=== PATIENT | female | born 1980 | race Caucasian/White ===

== ENCOUNTER 2016-11-27 13:17 | Emergency (ER) | payer OTHER ==
--- NOTE | 2016-11-27 14:49 | ED ---
General Adult HPI - General Chief complaint: Extremity Problem,Nontraumatic Stated complaint: Hand Pain Time Seen by Provider: 11/27/16 14:18 Source: patient, RN notes reviewed Mode of arrival: ambulatory Limitations: no limitations - History of Present Illness Initial comments: Chief complaint and history of present illness a 36-year-old female with complaint of discomfort to her right wrist that started for 5 days ago persists. She also has mild discomfort to her right flank increases with certain twisting and turning. She also complains discomfort to her right knee without swelling or injury. Patient also relates that approximately one or 2 years ago she had bilateral ankle swelling for parent reason subsided on its own. Patient denies previous or arthritic type problems other than that noted above. Denies any injuries. Her children a 5 or 6 years old she doesn't carry them on the particular side. 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 Denies fevers and chills. - Related Data Previous Rx's Medication Instructions Recorded Azithromycin [Zithromax Z-pack] 250 mg PO DIRECTED #6 tab 11/27/16 Allergies Allergy/AdvReac Type Severity Reaction Status Date / Time hydromorphone AdvReac Itching Verified 11/27/16 14:15 Review of Systems ROS Statement: Those systems with pertinent positive or pertinent negative responses have been documented in the HPI. Review of systems no visual acuity changes no headache no stiff neck no sore throat. No chest pain. She has discomfort to the right flank area no injury. Mild discomfort with twisting and turning. No abdominal pain no nausea no vomiting no diarrhea. Discomfort through the carpal tunnel on the right hand. Mild discomfort to the right wrist. No evidence of a neuro deficits. Also some discomfort to her left knee. All systems reviewed. Past medical problems no medical problems. Surgeries post ectopy. Family history not respiratory. She has ALLERGIES to hydromorphone which causes her itching. Nonsmoker nondrinker. ROS Other: All systems not noted in ROS Statement are negative. Past Medical History Past Medical History: No Reported History History of Any Multi-Drug Resistant Organisms: None Reported Past Surgical History: Cholecystectomy Past Psychological History: No Psychological Hx Reported Smoking Status: Never smoker Past Alcohol Use History: None Reported Past Drug Use History: None Reported General Exam - General Exam Comments Initial Comments: General: The patient is awake and alert, with chief complaint of discomfort to her several joints including right hand right knee mild discomfort to her right mid back area. No injuries. Vital signs show temperature 97.8 pulse 74 respiratory rate 20 pulse ox 99% room air blood pressure 123/86 while he elevated systolic passed out noted. The patient is mild discomfort. She will be given follow-up with family physician on discharge. Eye: Pupils are equal, round and reactive to light, extra-ocular movements are intact ; there is normal conjunctiva bilaterally. No signs of icterus. Ears, nose, mouth and throat: There are moist mucous membranes and no oral lesions. Neck: The neck is supple, there is no tenderness , no anterior cervical lymphadenopathy. Cardiovascular: There is a regular rate and rhythm. No murmur, rub or gallop is appreciated. Respiratory: Lungs are clear to auscultation, respirations are non-labored, breath sounds are equal. No wheezes, stridor, rales, or rhonchi. Gastrointestinal: Soft, non-distended, non-tender abdomen without masses or organomegaly noted. There is no rebound or guarding present. Mild nonspecific right CVA discomfort with twisting and turning and bending. No bruising noted no complaint of urgency or dysuria but she does have frequency. Urinalysis pending.. Bowel sounds are unremarkable. Back: There is no tenderness to palpation in the midline. There is no obvious deformity. Musculoskeletal: Examination of all joints appear normal without swelling. She does have discomfort to the carpal bones of her right hand. Range of motion is normal but with discomfort. Neurovascular status intact. Normal Madhu test. Full range of motion upper and lower extremities normal joints. Examination of the right knee shows no swelling. No pain with varus valgus or drawer testing. No swelling or effusion noted on exam. Neurological: CN II-XII intact, There are no obvious motor or sensory deficits. Coordination appears grossly intact. Speech is normal. Skin: Skin is warm and dry and no rashes or lesions are noted. Limitations: no limitations Course Vital Signs 11/27/16 11/27/16 13:21 17:04 Temperature 97.8 F 98.7 F Pulse Rate 74 65 Respiratory 20 16 Rate Blood Pressure 123/86 128/68 O2 Sat by Pulse 99 99 Oximetry Medical Decision Making - Medical Decision Making Medical decision making x-ray of the right hand including the wrist was done and reviewed by radiologist his final impression is no abnormality evident to account for the patient's symptoms. As read by Dr. Oh Chest x-ray is done and reviewed by radiologist his findings are there is bilateral nodularity, increase in interstitial is also suspected, some minimal patchy density in the left upper lobe laterally. No pneumothorax or pleural effusion. Spinal curvature is again noted. Cardiac mediastinal silhouette shows possible left hilar aortopulmonary adenopathy, pulmonary vascularity shows no significant interval change. Prominent lung volumes could be indicative of COPD. Surgical clips are present in the right upper quadrant. Impression; interval development of nodular pattern within the lungs. Consider granulomatous disease both infectious and noninfectious, metastatic disease is not excluded. Consider pulmonary consult. As read by Dr. Oh Labs show rheumatoid factor less than 9, CRP elevated at 14, urine clean no signs of infection. Medical decision making; the patient's labs show white count of 55.3 hemoglobin 13 hematocrit 39. Potassium 4.0. BUN 8 creatinine 0.43 to GFR greater than 60. Glucose 75. Case discussed with Dr. Black, on-call plastic sheets finishing supervisor. He recommends in addition to the tests done a CT with IV contrast of the chest, as well as KEITH and patient to be treated with azithromycin and follow up in office within the week. And a is still pending at this time. CT of the chest was done with IV contrast entire report was reviewed and the final impression is abnormal thoracic adenopathy with heterogeneous spleen and scattered reticular nodular infiltrates most prominent pronounced in the upper lobes. Differential include active sarcoidosis, other granulomatous diseases, as well as atypical infections including mycoplasma. Pulmonology consult advised. As of this time the patient will call follow up with the plastic sheets finishing supervisor. The patient be placed on a Z-Pablo. - Lab Data Result diagrams: 11/27/16 14:45 11/27/16 14:45 Lab Results 11/27/16 11/27/16 11/27/16 Range/Units 14:45 14:45 14:45 WBC 5.3 (3.8-10.6) k/uL RBC 4.36 (3.80-5.40) m/uL Hgb 13.2 (11.4-16.0) gm/dL Hct 39.4 (34.0-46.0) % MCV 90.4 (80.0-100.0) fL MCH 30.1 (25.0-35.0) pg MCHC 33.4 (31.0-37.0) g/dL RDW 13.6 (11.5-15.5) % Plt Count 262 (150-450) k/uL Neutrophils % 70 % Lymphocytes % 15 % Monocytes % 8 % Eosinophils % 2 % Basophils % 1 % Neutrophils # 3.7 (1.3-7.7) k/uL Lymphocytes # 0.8 L (1.0-4.8) k/uL Monocytes # 0.5 (0-1.0) k/uL Eosinophils # 0.1 (0-0.7) k/uL Basophils # 0.0 (0-0.2) k/uL Sodium (137-145) mmol/L Potassium (3.5-5.1) mmol/L Chloride (98-107) mmol/L Carbon Dioxide (22-30) mmol/L Anion Gap mmol/L BUN (7-17) mg/dL Creatinine (0.52-1.04) mg/dL Est GFR (MDRD) Af Amer (>60 ml/min/1.73 sqM) Est GFR (MDRD) Non-Af (>60 ml/min/1.73 sqM) Glucose (74-99) mg/dL Calcium (8.4-10.2) mg/dL Total Bilirubin (0.2-1.3) mg/dL AST (14-36) U/L ALT (9-52) U/L Alkaline Phosphatase (38-126) U/L C-Reactive Protein 14.0 H (<10.0) mg/L Total Protein (6.3-8.2) g/dL Albumin (3.5-5.0) g/dL Urine Color Yellow Urine Appearance Clear (Clear) Urine pH 6.5 (5.0-8.0) Ur Specific [place] 1.010 (1.001-1.035) Urine Protein Negative (Negative) Urine Glucose (UA) Negative (Negative) Urine Ketones Negative (Negative) Urine Blood Negative (Negative) Urine Nitrite Negative (Negative) Urine Bilirubin Negative (Negative) Urine Urobilinogen <2.0 (<2.0) mg/dL Ur Leukocyte Esterase Negative (Negative) Rheumatoid Factor <9 (<12) IU/mL 11/27/16 Range/Units 14:45 WBC (3.8-10.6) k/uL RBC (3.80-5.40) m/uL Hgb (11.4-16.0) gm/dL Hct (34.0-46.0) % MCV (80.0-100.0) fL MCH (25.0-35.0) pg MCHC (31.0-37.0) g/dL RDW (11.5-15.5) % Plt Count (150-450) k/uL Neutrophils % % Lymphocytes % % Monocytes % % Eosinophils % % Basophils % % Neutrophils # (1.3-7.7) k/uL Lymphocytes # (1.0-4.8) k/uL Monocytes # (0-1.0) k/uL Eosinophils # (0-0.7) k/uL Basophils # (0-0.2) k/uL Sodium 140 (137-145) mmol/L Potassium 4.0 (3.5-5.1) mmol/L Chloride 106 (98-107) mmol/L Carbon Dioxide 21 L (22-30) mmol/L Anion Gap 13 mmol/L BUN 8 (7-17) mg/dL Creatinine 0.43 L (0.52-1.04) mg/dL Est GFR (MDRD) Af Amer >60 (>60 ml/min/1.73 sqM) Est GFR (MDRD) Non-Af >60 (>60 ml/min/1.73 sqM) Glucose 75 (74-99) mg/dL Calcium 9.3 (8.4-10.2) mg/dL Total Bilirubin 1.3 (0.2-1.3) mg/dL AST 30 (14-36) U/L ALT 41 (9-52) U/L Alkaline Phosphatase 94 (38-126) U/L C-Reactive Protein (<10.0) mg/L Total Protein 8.0 (6.3-8.2) g/dL Albumin 4.3 (3.5-5.0) g/dL Urine Color Urine Appearance (Clear) Urine pH (5.0-8.0) Ur Specific [place] (1.001-1.035) Urine Protein (Negative) Urine Glucose (UA) (Negative) Urine Ketones (Negative) Urine Blood (Negative) Urine Nitrite (Negative) Urine Bilirubin (Negative) Urine Urobilinogen (<2.0) mg/dL Ur Leukocyte Esterase (Negative) Rheumatoid Factor (<12) IU/mL Disposition Clinical Impression: Granulomatous disease Disposition: HOME SELF-CARE Condition: Stable Instructions: Sarcoidosis (ED) Additional Instructions: Call follow up with Dr. Black early next week. Take Z-Pablo as directed. Tylenol or ibuprofen for discomfort. Prescriptions: Azithromycin [Zithromax Z-pack] 250 mg PO DIRECTED #6 tab Time of Disposition: 18:08
[2016-11-27 15:05] LABS: Appearance,Urine Clear (Clear); Bilirubin,Urine Negative (Negative); Glucose,Urine (UA) Negative (Negative); Ketones,Urine Negative (Negative); Leukocyte Esterase,Urine Negative (Negative); Nitrite,Urine Negative (Negative); PH, Urine 6.5 (5.0-8.0); Protein,Urine Negative (Negative); UA Billing (MACRO vs. MICRO) CHEM; Urobilinogen,Urine <2.0 mg/dL (<2.0)
[2016-11-27 15:16] LABS: Rheumatoid Factor, Qnt <9 IU/mL (<12)
--- NOTE | 2016-11-27 15:22 | XR ---
EXAMINATION TYPE: XR chest 2V DATE OF EXAM: 11/27/2016 3:12 PM COMPARISON: Prior chest x-ray 11 August 2013 HISTORY: Right chest pain TECHNIQUE: Frontal and lateral views of the chest are obtained. FINDINGS: There is bilateral nodularity, increase in interstitium is also suspected, some minimal pa tchy density in the left upper lobe laterally. No pneumothorax or pleural effusion. Spinal curvature is again noted. Cardiac mediastinal silhouette shows possible left hilar or aorticopulmonary window a denopathy, pulmonary vascularity shows no significant interval change. Prominent lung volume could be indicative of COPD. Surgical clips are present right upper quadrant. IMPRESSION: Interval development of nodular pattern within the lungs. Consider granulomatous disease both infectious and noninfectious, metastatic disease is not excluded. Consider pulmonary consult.
--- NOTE | 2016-11-27 15:23 | XR ---
Right hand HISTORY: Pain 3 views of the right hand No comparisons Bone mineralization, joint spaces and alignment are maintained. There is no fracture or dislocation. No radiopaque foreign body. IMPRESSION: No abnormality evident to account for patient's symptoms.
[2016-11-27] MEDS ORDERED: HYDROcodone/APAP 5-325MG 1 EACH TAB PO STA (15:43)
[2016-11-27 15:48] LABS: Basophils % (A) 1 %; CH 30.3; CHCM 33.7; Eosinophils # (A) 0.1 k/uL (0-0.7); Eosinophils % (A) 2 %; HCT 39.4 % (34.0-46.0); HDW 2.81; HGB 13.2 gm/dL (11.4-16.0); Luc # (Auto) 0.24; Luc % (Auto) 4; Lymphocytes # (A) 0.8 k/uL (1.0-4.8); Lymphocytes % (A) 15 %; MCH 30.1 pg (25.0-35.0); MCHC 33.4 g/dL (31.0-37.0); MCV 90.4 fL (80.0-100.0); Mean Platelet Volume 6.5; Monocytes # (A) 0.5 k/uL (0-1.0); Monocytes % (A) 8 %; Neutrophils # (A) 3.7 k/uL (1.3-7.7); Neutrophils % (A) 70 %; RBC 4.36 m/uL (3.80-5.40); RDW 13.6 % (11.5-15.5); WBC 5.3 k/uL (3.8-10.6); WBC (Perox) 5.27
[2016-11-27 15:51] LABS: ALT 41 U/L (9-52); AST 30 U/L (14-36); Alkaline Phosphatase 94 U/L (38-126); Anion Gap 13 mmol/L; Blood Urea Nitrogen 8 mg/dL (7-17); Calcium 9.3 mg/dL (8.4-10.2); Carbon Dioxide 21 mmol/L (22-30); Chloride 106 mmol/L (98-107); Glucose 75 mg/dL (74-99); Non-African American GFR(MDRD) >60 (>60 ml/min/1.73 sqM); Sodium 140 mmol/L (137-145); Total Bilirubin 1.3 mg/dL (0.2-1.3)
[2016-11-27] MEDS ORDERED: RX INFO: IV CONTRAST WAS GIVEN 1 EACH MISC MISCELLANE PRN (16:48)
--- NOTE | 2016-11-27 17:57 | CT ---
EXAMINATION TYPE: CT chest w con DATE OF EXAM: 11/27/2016 5:37 PM COMPARISON: Chest x-ray from earlier today HISTORY: Abnormal cxr. Right sided chest pain. CT DLP: 542.00 mGycm. Automated Exposure Control for Dose Reduction was Utilized. TECHNIQUE: CT scan of the thorax is performed following with IV Contrast, patient injected with 100 mL of Omnipaque 300. FINDINGS: LUNGS: Correlating with chest x-ray there are ill-defined reticulonodular infiltrates involving the l ateral aspect left upper lobe and to lesser degree in the right upper lobe. Patchy reticulonodular in filtrates extend into the lingula and right middle lobe as well as portions of the right lower lobe. There are some scattered pulmonary nodules identified, for reference there is 5 x 3 mm nodule lateral ly in the left lower lobe on axial image 42. No pleural effusion or pneumothorax is seen bilaterally. Tracheobronchial tree is patent. MEDIASTINUM: There is abnormal lymph node in the superior mediastinum on axial image 6 measuring 1.7 x 1.6 cm right paratracheal level. There are multiple enlarged bilateral hilar or mediastinal lymph n odes. No cardiomegaly or pericardial effusion is seen. OTHER: Heterogeneity of spleen is present. Multiple low dense lesions are likely present Cholecystect radha clips are noted. There is straightening of spine with multilevel mild spurring. IMPRESSION: Abnormal thoracic adenopathy with heterogeneous spleen and scattered reticulonodular infi ltrates most pronounced in the upper lobes. Differential includes active sarcoidosis, other granuloma tous diseases, as well as atypical infections including mycoplasma. Pulmonology consult advised.
[2016-11-27 18:25] VITALS: BP 142/78; PULSE 80; RESP 20; TEMP 98.2
[2016-11-28 03:21] LABS: ANA w/Reflex to Titer POSITIVE (NEGATIVE)
== END 2016-11-27 18:25 | disposition home or self-care (01) ==
LOC: EC 13:17
DX: D71 Functional disorders of polymorphonuclear neutrophils (principal); R59.0 Localized enlarged lymph nodes; M79.641 Pain in right hand; R35.0 Frequency of micturition; Z88.5 Allergy status to narcotic agent; Z90.49 Acquired absence of other specified parts of digestive tract
CPT/HCPCS: 99284; 36415; 80053; 85025; 86140; 86431; 81003; 86038; 86039; 87086; 71020; 73130; 71260; Q9967

== ENCOUNTER → 2017-06-13 | Outpatient (CLI) | payer OTHER ==
--- NOTE | 2017-06-13 21:44 | ECHOS ---
STRESS ECHOCARDIOGRAM INDICATIONS: Palpitations. MEDICATIONS:: Lyrica, Pepcid, prednisone. BASELINE HEART RATE: 90 BASELINE BLOOD PRESSURE: 109/51 MAXIMUM HEART RATE: 173 MAXIMUM BLOOD PRESSURE: 192/69 85% MPHR: 158 100% MPHR: 186 METS: 6.3 MAXIMUM STAGE REACHED: II TOTAL EXERCISE TIME: 5 minutes CLINICAL INFORMATION: Baseline EKG shows sinus rhythm, normal axis, normal intervals. Patient exercised on Chandrakant protocol for a total of 5 minutes, achieving 6 METS, 93% of predicted maximal heart rate, without chest pain or diagnostic ST-segment depression. Baseline echo shows mildly enlarged left ventricle with mild LV dysfunction with an ejection fraction of 45%. Post exercise there is normal hyperdynamic response of all segments of myocardium noted. CONCLUSIONS: 1. Poor exercise tolerance. 2. Negative stress test by EKG criteria. 3. Non-ischemic cardiomyopathy with mild left ventricular dysfunction without any stress-induced ischemia. MMODL / IJN: [id number] /
== END ==
LOC: RADNMMAIN 09:29
PROVIDERS: ATTEND Family Medicine
DX: R00.2 Palpitations (principal)
CPT/HCPCS: 93017; 93350

== ENCOUNTER → 2017-07-14 | Outpatient (CLI) | payer OTHER ==
--- NOTE | 2017-07-14 16:38 | CT ---
EXAMINATION TYPE: CT chest wo con DATE OF EXAM: 07/14/2017 COMPARISON: 11/27/2016 HISTORY: SOB, f/u for sarcoidosis CT DLP: 255.[address] of the chest was performed with lung and mediastinal window settings submitted. The la ck of contrast limits evaluation of the vascular, mediastinal and parenchymal structures including th e upper abdomen. LUNGS: Previously noted reticulonodular infiltrates have for the most part resolved nearly entirely. There is mild residual interstitial change within the left upper lobe with small 5 mm lingular nodula r density. The right lung is clear. No evidence of pleural effusion. MEDIASTINUM/CLAUDIA: Dramatic improvement in mediastinal and hilar adenopathy. Residual lymph nodes are noted all measuring less than 1 cm. Thoracic aorta is of normal caliber with limited evaluation given lack of contrast. The heart is not enlarged. No evidence for mediastinal mass. UPPER ABDOMEN: No significant abnormality is seen. OTHER: No significant other abnormality. IMPRESSION: 1. Dramatic improvement in bilateral reticulonodular infiltrates as well as mediastinal and hilar ad enopathy. Mild residual interstitial changes noted left upper lobe as well as one or 2 small nodules. No new areas of infiltrate are noted at this time.
== END | disposition home or self-care (01) ==
LOC: RADCTMAIN 16:09
PROVIDERS: ATTEND Internal Medicine Pulmonary Disease
DX: R59.1 Generalized enlarged lymph nodes (principal); R91.8 Other nonspecific abnormal finding of lung field; R05 Cough; R06.02 Shortness of breath; M25.50 Pain in unspecified joint; R53.83 Other fatigue
CPT/HCPCS: 36415; 71250; 82164; 85652

== ENCOUNTER 2018-03-19 21:11 | Emergency (ER) | payer OTHER ==
[2018-03-19 21:28] VITALS: BP 126/84; PULSE 104; RESP 18; TEMP 98.5
[2018-03-19] MEDS ORDERED: KETOROLAC 30 MG/ML 1 ML VIAL IVP STA (22:18)
[2018-03-19] MEDS ORDERED: diphenhydrAMINE 50 MG/ML 1 ML VIAL IVP STA (22:18)
[2018-03-19] MEDS ORDERED: METOCLOPRAMIDE 5 MG/ML 2 ML VIAL IVP STA (22:18)
[2018-03-19] MEDS ORDERED: SODIUM CHLORIDE 0.9% 1,000 ML IV ONE (22:18)
[2018-03-19] MEDS ORDERED: FAMOTIDINE 20 MG TAB PO STA (22:43)
[2018-03-19] MEDS ORDERED: predniSONE 20 MG TAB PO STA (22:43)
[2018-03-19] MEDS ORDERED: diphenhydrAMINE 50 MG CAP PO STA (22:43)
--- NOTE | 2018-03-19 22:44 | ED ---
Allergic Reaction HPI - General Chief complaint: Allergic Reaction Stated complaint: Rash Time Seen by Provider: 03/19/18 22:18 Source: patient Mode of arrival: ambulatory Limitations: no limitations - History of Present Illness MD Complaint: hives Onset/Timin -: days(s) Exposure: unknown Symptoms: rash, itching Severity: moderate Treatment Prior to Arrival: benadryl Previous Allergy History: none - Related Data Home Medications Medication Instructions Recorded Confirmed Hydrocortisone Cream 1 applic TOPICAL BID PRN 03/19/18 03/19/18 [Hydrocortisone 1% Cream] Lisinopril [Zestril] 2.5 mg PO DAILY 03/19/18 03/19/18 Metoprolol Succinate [Toprol Xl] 50 mg PO DAILY 03/19/18 03/19/18 diphenhydrAMINE [Benadryl] 25 mg PO HS PRN 03/19/18 03/19/18 Previous Rx's Medication Instructions Recorded Famotidine [Pepcid] 20 mg PO BID #14 tablet 03/19/18 predniSONE 60 mg PO DAILY #30 tab 03/19/18 Allergies Allergy/AdvReac Type Severity Reaction Status Date / Time hydromorphone AdvReac Itching Verified 03/19/18 22:21 Review of Systems ROS Statement: Those systems with pertinent positive or pertinent negative responses have been documented in the HPI. ROS Other: All systems not noted in ROS Statement are negative. Constitutional: Denies: fever, chills ENT: Denies: throat pain, congestion Respiratory: Denies: cough, dyspnea Cardiovascular: Denies: palpitations Gastrointestinal: Denies: vomiting, diarrhea Genitourinary: Denies: dysuria Skin: Reports: as per HPI, rash Past Medical History Past Medical History: No Reported History History of Any Multi-Drug Resistant Organisms: None Reported Past Surgical History: Cholecystectomy Past Psychological History: No Psychological Hx Reported Smoking Status: Never smoker Past Alcohol Use History: None Reported Past Drug Use History: None Reported General Exam Limitations: no limitations General appearance: alert, in no apparent distress Head exam: Present: atraumatic, normocephalic Eye exam: Present: normal appearance. Absent: scleral icterus, conjunctival injection ENT exam: Present: normal oropharynx, mucous membranes moist Neck exam: Present: normal inspection, full ROM Respiratory exam: Present: normal lung sounds bilaterally. Absent: respiratory distress, wheezes, rales, rhonchi, stridor Cardiovascular Exam: Present: regular rate, normal rhythm, normal heart sounds GI/Abdominal exam: Present: soft. Absent: tenderness, guarding, rebound, mass Extremities exam: Present: normal inspection, normal capillary refill. Absent: pedal edema, calf tenderness Neurological exam: Present: alert Skin exam: Present: warm, dry, intact, normal color, urticaria Course Vital Signs 03/19/18 21:25 Temperature 98.5 F Pulse Rate 104 H Respiratory 18 Rate Blood Pressure 126/84 O2 Sat by Pulse 100 Oximetry Disposition Clinical Impression: Urticaria Disposition: HOME SELF-CARE Condition: Good Instructions: Urticaria (ED) Prescriptions: Famotidine [Pepcid] 20 mg PO BID #14 tablet predniSONE 60 mg PO DAILY #30 tab Is patient prescribed a controlled substance at d/c from ED?: No Referrals: Greg Quigley DO [Primary Care Provider] - 1-2 days
== END 2018-03-19 22:52 | disposition home or self-care (01) ==
LOC: EC 21:11
DX: L50.9 Urticaria, unspecified (principal); Z79.899 Other long term (current) drug therapy; Z88.5 Allergy status to narcotic agent
CPT/HCPCS: 99283

== ENCOUNTER → 2018-06-24 | Outpatient (CLI) | payer OTHER ==
[2018-06-24 12:49] LABS: HCT 38.3 % (34.0-46.0); HGB 12.8 gm/dL (11.4-16.0); MCH 30.6 pg (25.0-35.0); MCHC 33.5 g/dL (31.0-37.0); MCV 91.3 fL (80.0-100.0); Mean Platelet Volume 6.5; Platelet Count 277 k/uL (150-450); RBC 4.19 m/uL (3.80-5.40); RDW 12.8 % (11.5-15.5); WBC 6.2 k/uL (3.8-10.6)
[2018-06-24 18:05] LABS: Albumin 4.5 g/dL (3.80-4.90); Albumin/Globulin Ratio 1.96 (1.20-2.10); Anion Gap 4.8 mmol/L (4.00-12.00); Calcium 9.1 mg/dL (8.7-10.3); Carbon Dioxide 28.2 mmol/L (21.6-31.8); Globulin 2.3 g/dL (2.1-3.7); Potassium 4.1 mmol/L (3.5-5.5); Total Bilirubin 0.7 mg/dL (0.2-1.2); Total Protein 6.8 g/dL (6.2-8.2)
== END | disposition home or self-care (01) ==
LOC: LABWHC1 12:01
PROVIDERS: ATTEND Internal Medicine Interventional Cardiology
DX: I42.8 Other cardiomyopathies (principal)
CPT/HCPCS: 36415; 80053; 84443; 85027

== ENCOUNTER → 2018-08-19 | Outpatient (CLI) | payer OTHER ==
--- NOTE | 2018-08-20 07:50 | CT ---
EXAMINATION TYPE: CT chest wo con DATE OF EXAM: 08/19/2018 COMPARISON: Prior chest CT July 14, 2017 HISTORY: History of sarcoidosis with cough and shortness of breath CT DLP: 536 mGycm. Automated Exposure Control for Dose Reduction was Utilized. TECHNIQUE: CT scan of the thorax is performed without IV contrast. FINDINGS: LUNGS: The lungs are grossly clear, there is no concerning parenchymal mass or nodule identified. Mil d reticulation laterally lower aspect left upper lobe remains present. No new consolidation or ground glass opacity is seen. There is no pleural effusion or pneumothorax seen. The tracheobronchial tree is patent. MEDIASTINUM: Lack of IV contrast is noted to limit evaluation for mediastinal and especially hilar ad enopathy. There are no definitive greater than 1 cm hilar or mediastinal lymph nodes. No cardiomega ly or pericardial effusion is seen. OTHER: Symmetric heterogeneously dense fibroglandular tissue is noted throughout both breasts. Cholec ystectomy clips are redemonstrated. Mild to moderate multilevel spurring in the thoracic spine is aga in seen. IMPRESSION: Mild to minimal left mid lung reticular scarring. No acute pulmonary process. No signific ant new findings on current study to account for patient's symptoms.
== END | disposition home or self-care (01) ==
LOC: RADCTMAIN 17:22
PROVIDERS: ATTEND Internal Medicine Pulmonary Disease
DX: J98.4 Other disorders of lung (principal); R06.02 Shortness of breath; R05 Cough
CPT/HCPCS: 71250

== ENCOUNTER 2020-04-17 20:12 | Emergency (ER) | payer OTHER ==
--- NOTE | 2020-04-17 20:29 | ED ---
General Adult HPI - General Chief complaint: Arrhythmia/Palpitations Stated complaint: Palpitations Time Seen by Provider: 04/17/20 20:17 Source: patient Mode of arrival: ambulatory Limitations: no limitations - History of Present Illness Initial comments: 39-year-old female patient presents to the emergency department today for evaluation of palpitations. Patient states that she has been having palpitations the last couple of hours. States it does make her feel short of breath and causes pressure in her chest. She does have a past medical history significant for left-sided heart failure and takes metoprolol as well as losartan potassium. Denies any dizziness, weakness, or syncope. Denies alcohol or drug use. Denies increased caffeine intake. Patient denies any recent rash, fever, chills, cough, abdominal pain, nausea, vomiting, diarrhea, constipation, back pain, numbness, tingling, hematuria, dysuria, urinary urgency, urinary frequency, headache, visual changes, or any other complaints. - Related Data Home Medications Medication Instructions Recorded Confirmed Acetaminophen [Tylenol Arthritis] 650 mg PO DAILY PRN 04/17/20 04/17/20 Allergies Allergy/AdvReac Type Severity Reaction Status Date / Time hydromorphone AdvReac Itching Verified 04/17/20 21:21 Review of Systems ROS Statement: Those systems with pertinent positive or pertinent negative responses have been documented in the HPI. ROS Other: All systems not noted in ROS Statement are negative. Past Medical History Past Medical History: No Reported History History of Any Multi-Drug Resistant Organisms: None Reported Past Surgical History: Cholecystectomy Past Psychological History: No Psychological Hx Reported Past Alcohol Use History: None Reported Past Drug Use History: None Reported General Exam Limitations: no limitations General appearance: alert, in no apparent distress, other (This is a well- developed, well-nourished adult female patient in no acute distress. Vital signs upon presentation are temperature 98.5F, pulse 90, respirations 18, blood pressure 137/92, pulse ox 100% on room air.) Respiratory exam: Present: normal lung sounds bilaterally. Absent: respiratory distress, wheezes, rales, rhonchi, stridor Cardiovascular Exam: Present: regular rate, normal rhythm, normal heart sounds. Absent: systolic murmur, diastolic murmur, rubs, gallop, clicks GI/Abdominal exam: Present: soft, normal bowel sounds. Absent: distended, tenderness, guarding, rebound, rigid Neurological exam: Present: alert, oriented X3, CN II-XII intact Psychiatric exam: Present: normal affect, normal mood Skin exam: Present: warm, dry, intact, normal color. Absent: rash Course Vital Signs 04/17/20 04/17/20 04/17/20 20:13 21:49 22:42 Temperature 98.5 F 98.3 F Pulse Rate 90 94 98 Respiratory 18 16 16 Rate Blood Pressure 137/92 126/86 111/76 O2 Sat by Pulse 100 100 95 Oximetry Medical Decision Making - Medical Decision Making 39-year-old female patient presents to the emergency department today for evaluation of palpitations. Physical examination is unremarkable. Heart sounds were normal. EKG did show normal sinus rhythm with frequent PVCs. Labs reviewed and are unremarkable. Chest x-ray is negative. I did discuss the findings and results with the patient. We did discuss PVCs. She is instructed to follow-up with her primary care physician for recheck in 1-2 days. She is instructed to the director game this as possible. Return parameters were discussed in detail. She verbalizes understanding and agrees with this plan. - Lab Data Result diagrams: 04/17/20 20:57 04/17/20 20:57 Lab Results 04/17/20 04/17/20 04/17/20 Range/Units 20:57 20:57 20:57 WBC 6.4 (3.8-10.6) k/uL RBC 4.37 (3.80-5.40) m/uL Hgb 12.8 (11.4-16.0) gm/dL Hct 39.1 (34.0-46.0) % MCV 89.4 (80.0-100.0) fL MCH 29.3 (25.0-35.0) pg MCHC 32.8 (31.0-37.0) g/dL RDW 12.8 (11.5-15.5) % Plt Count 257 (150-450) k/uL Neutrophils % 61 % Lymphocytes % 30 % Monocytes % 5 % Eosinophils % 1 % Basophils % 0 % Neutrophils # 3.9 (1.3-7.7) k/uL Lymphocytes # 1.9 (1.0-4.8) k/uL Monocytes # 0.3 (0-1.0) k/uL Eosinophils # 0.1 (0-0.7) k/uL Basophils # 0.0 (0-0.2) k/uL PT 9.9 (9.0-12.0) sec INR 0.9 (<1.2) APTT 22.9 (22.0-30.0) sec Sodium (137-145) mmol/L Potassium (3.5-5.1) mmol/L Chloride (98-107) mmol/L Carbon Dioxide (22-30) mmol/L Anion Gap mmol/L BUN (7-17) mg/dL Creatinine (0.52-1.04) mg/dL Est GFR (CKD-EPI)AfAm (>60 ml/min/1.73 sqM) Est GFR (CKD-EPI)NonAf (>60 ml/min/1.73 sqM) Glucose (74-99) mg/dL Calcium (8.4-10.2) mg/dL Magnesium (1.6-2.3) mg/dL Total Bilirubin (0.2-1.3) mg/dL AST (14-36) U/L ALT (4-34) U/L Alkaline Phosphatase (38-126) U/L Troponin I (0.000-0.034) ng/mL Total Protein (6.3-8.2) g/dL Albumin (3.5-5.0) g/dL TSH (0.465-4.680) mIU/L Urine Color Iesha Urine Appearance Slightly Cloudy H (Clear) Urine pH 6.0 (5.0-8.0) Ur Specific [place] 1.025 (1.001-1.035) Urine Protein 1+ H (Negative) Urine Glucose (UA) Negative (Negative) Urine Ketones Negative (Negative) Urine Blood Small (Negative) Urine Nitrite Negative (Negative) Urine Bilirubin Negative (Negative) Urine Urobilinogen 2.0 (<2.0) mg/dL Ur Leukocyte Esterase Negative (Negative) Urine RBC 30 H (0-5) /hpf Urine WBC 2 (0-5) /hpf Ur Squamous Epith Cells 11 H (0-4) /hpf Calcium Oxalate Crystal Few H (None) /hpf Urine Mucus Many H (None) /hpf 04/17/20 04/17/20 Range/Units 20:57 20:57 WBC (3.8-10.6) k/uL RBC (3.80-5.40) m/uL Hgb (11.4-16.0) gm/dL Hct (34.0-46.0) % MCV (80.0-100.0) fL MCH (25.0-35.0) pg MCHC (31.0-37.0) g/dL RDW (11.5-15.5) % Plt Count (150-450) k/uL Neutrophils % % Lymphocytes % % Monocytes % % Eosinophils % % Basophils % % Neutrophils # (1.3-7.7) k/uL Lymphocytes # (1.0-4.8) k/uL Monocytes # (0-1.0) k/uL Eosinophils # (0-0.7) k/uL Basophils # (0-0.2) k/uL PT (9.0-12.0) sec INR (<1.2) APTT (22.0-30.0) sec Sodium 140 (137-145) mmol/L Potassium 3.8 (3.5-5.1) mmol/L Chloride 105 (98-107) mmol/L Carbon Dioxide 26 (22-30) mmol/L Anion Gap 9 mmol/L BUN 9 (7-17) mg/dL Creatinine 0.55 (0.52-1.04) mg/dL Est GFR (CKD-EPI)AfAm >90 (>60 ml/min/1.73 sqM) Est GFR (CKD-EPI)NonAf >90 (>60 ml/min/1.73 sqM) Glucose 94 (74-99) mg/dL Calcium 9.7 (8.4-10.2) mg/dL Magnesium 1.9 (1.6-2.3) mg/dL Total Bilirubin 0.9 (0.2-1.3) mg/dL AST 24 (14-36) U/L ALT 19 (4-34) U/L Alkaline Phosphatase 73 (38-126) U/L Troponin I <0.012 (0.000-0.034) ng/mL Total Protein 7.4 (6.3-8.2) g/dL Albumin 4.6 (3.5-5.0) g/dL TSH 2.090 (0.465-4.680) mIU/L Urine Color Urine Appearance (Clear) Urine pH (5.0-8.0) Ur Specific [place] (1.001-1.035) Urine Protein (Negative) Urine Glucose (UA) (Negative) Urine Ketones (Negative) Urine Blood (Negative) Urine Nitrite (Negative) Urine Bilirubin (Negative) Urine Urobilinogen (<2.0) mg/dL Ur Leukocyte Esterase (Negative) Urine RBC (0-5) /hpf Urine WBC (0-5) /hpf Ur Squamous Epith Cells (0-4) /hpf Calcium Oxalate Crystal (None) /hpf Urine Mucus (None) /hpf - Radiology Data Radiology results: report reviewed, image reviewed Two-view x-ray of the chest is obtained. Report was reviewed in its entirety. Impression by Dr. Flores shows normal chest. There is clearing of swelling infiltrate in the lateral left upper lobe compared to old exam. Disposition Clinical Impression: Palpitations, PVC (premature ventricular contraction) Disposition: HOME SELF-CARE Condition: Good Instructions (If sedation given, give patient instructions): Heart Palpitations (ED), Premature Ventricular Contractions (ED) Additional Instructions: Increase fluids. Rest. Follow-up with the primary care physician for recheck in 1-2 days. Follow-up with cardiology as soon as possible. Return to the emergency department immediately for any new, worsening, or concerning symptoms. Is patient prescribed a controlled substance at d/c from ED?: No Referrals: Greg Quigley DO [Primary Care Provider] - 1-2 days Time of Disposition: 22:28
[2020-04-17 21:14] LABS: Calcium Oxalate Crystals,Urine Few /hpf; Mucus,Urine Many /hpf; RBC,Urine 30 /hpf (0-5); Squamous Epithelial Cell,Urine 11 /hpf (0-4); WBC,Urine 2 /hpf (0-5)
[2020-04-17 21:21] LABS: Appearance,Urine Slightly Cloudy (Clear); Bilirubin,Urine Negative (Negative); Blood,Urine Small (Negative); Color,Urine Amber; Glucose,Urine (UA) Negative (Negative); Ketones,Urine Negative (Negative); Leukocyte Esterase,Urine Negative (Negative); Nitrite,Urine Negative (Negative); Protein,Urine 1+ (Negative); Specific Gravity,Urine 1.025 (1.001-1.035)
[2020-04-17 21:32] LABS: Basophils % (A) 0 %; Eosinophils # (A) 0.1 k/uL (0-0.7); Eosinophils % (A) 1 %; HCT 39.1 % (34.0-46.0); HGB 12.8 gm/dL (11.4-16.0); Lymphocytes # (A) 1.9 k/uL (1.0-4.8); Lymphocytes % (A) 30 %; MCH 29.3 pg (25.0-35.0); MCHC 32.8 g/dL (31.0-37.0); MCV 89.4 fL (80.0-100.0); Mean Platelet Volume 6.8; Monocytes # (A) 0.3 k/uL (0-1.0); Monocytes % (A) 5 %; Neutrophils # (A) 3.9 k/uL (1.3-7.7); Neutrophils % (A) 61 %; Platelet Count 257 k/uL (150-450); RBC 4.37 m/uL (3.80-5.40); RDW 12.8 % (11.5-15.5); WBC 6.4 k/uL (3.8-10.6)
[2020-04-17 21:40] LABS: INR 0.9 (<1.2); Partial Thromboplastin Time 22.9 sec (22.0-30.0); Prothrombin Time 9.9 sec (9.0-12.0)
[2020-04-17 21:41] LABS: ALT 19 U/L (4-34); AST 24 U/L (14-36); African American GFR (CKD) >90 (>60 ml/min/1.73 sqM); Albumin 4.6 g/dL (3.5-5.0); Alkaline Phosphatase 73 U/L (38-126); Anion Gap 9 mmol/L; Blood Urea Nitrogen 9 mg/dL (7-17); Calcium 9.7 mg/dL (8.4-10.2); Carbon Dioxide 26 mmol/L (22-30); Chloride 105 mmol/L (98-107); Glucose 94 mg/dL (74-99); Magnesium 1.9 mg/dL (1.6-2.3); Non-African American GFR(CKD) >90 (>60 ml/min/1.73 sqM); Potassium 3.8 mmol/L (3.5-5.1); Sodium 140 mmol/L (137-145); Total Bilirubin 0.9 mg/dL (0.2-1.3); Total Protein 7.4 g/dL (6.3-8.2)
--- NOTE | 2020-04-17 21:44 | XR ---
EXAMINATION TYPE: XR chest 2V DATE OF EXAM: 04/17/2020 COMPARISON: 11/27/2016 HISTORY: Dysrhythmia TECHNIQUE: FINDINGS: Heart and mediastinum are normal. Lungs are clear. Diaphragm is normal. Bony thorax appears intact. There is old fracture right seventh rib. Pulmonary vascularity is normal. There are chest le ads. IMPRESSION: Normal chest. There is clearing of the small infiltrate in the lateral left upper lobe co mpared to old exam.
[2020-04-17 21:52] VITALS: RESP 16; TEMP 98.3
[2020-04-17 22:43] VITALS: BP 111/76; PULSE 98
== END 2020-04-17 22:40 | disposition home or self-care (01) ==
LOC: EC 20:12
DX: I49.3 Ventricular premature depolarization (principal); Z88.5 Allergy status to narcotic agent
CPT/HCPCS: 36415; 71046; 80053; 81001; 83735; 84443; 84484; 85025; 85610; 85730; 93005; 99285

== ENCOUNTER → 2021-01-08 | Outpatient (CLI) | payer OTHER ==
--- NOTE | 2021-01-08 13:36 | MM ---
Reason for exam: screening (asymptomatic). Baseline mammogram. History: Family history of breast cancer in paternal grandmother, breast cancer in paternal aunt, and breast cancer in paternal cousin. Took hormonal contraceptives for 2 years beginning at age 18. Physical Findings: Nurse did not find any significant physical abnormalities on exam. MG 3D Screening Mammo W/Cad Bilateral CC and MLO view(s) were taken. The breast tissue is heterogeneously dense. This may lower the sensitivity of mammography. These results were verbally communicated with the patient and result sheet given to the patient on 01/08/21. ASSESSMENT: Benign, BI-RAD 2 RECOMMENDATION: Routine screening mammogram of both breasts at age 42.
== END | disposition home or self-care (01) ==
LOC: RADMAMWWP 12:52
PROVIDERS: ATTEND Family Medicine
DX: Z12.31 Encounter for screening mammogram for malignant neoplasm of breast (principal); Z80.3 Family history of malignant neoplasm of breast
CPT/HCPCS: 77063; 77067

== ENCOUNTER 2021-01-11 11:35 | Day surgery (SDC) | payer OTHER ==
[2021-01-08 14:07] VITALS: BMI 30.2
[~2021-01-11 11:35] MED LIST: SODIUM CHLORIDE 0.9% 1,000 ML IV SCH
[2021-01-11] MEDS ORDERED: SODIUM CHLORIDE 0.9% 500 ML 500 ML IV ONE (11:44)
[2021-01-11 11:55] VITALS: RESP 16; TEMP 98.5
[2021-01-11 13:40] VITALS: BP 108/72; PULSE 87
--- NOTE | 2021-01-11 13:46 | P.EPPROC ---
- EP Procedure Note Electrophysiology Procedure Note: Diagnosis Palpitations and presyncope Twelve-lead EKG shows sinus rhythm normal SC narrow QRS normal ST segments Tilt table test for protocol Baseline heart rate 83 beats a minute, Baseline blood pressure 107/68 mmHg Patient was tilted upright at an angle of 70 per protocol This is a mild increase in heart rate by about 20 points in the first 10 minutes Heart rate went up to 180 beats a minute and remained around 110 beats a minute There was no evidence for syncope was no evidence for hypertension The patient states supine heart rates went back to 86 beats a minute Impression Normal twelve-lead EKG Orthostatic intolerance
== END 2021-01-11 14:15 | disposition home or self-care (01) ==
LOC: CATHEP 11:35
PROVIDERS: ATTEND Internal Medicine Clinical Cardiac Electrophysiology
DX: R42 Dizziness and giddiness (principal); R00.2 Palpitations; I42.9 Cardiomyopathy, unspecified; I49.8 Other specified cardiac arrhythmias; Z20.822 Contact with and (suspected) exposure to COVID-19; Z82.49 Family history of ischemic heart disease and other diseases of the circulatory system; Z79.1 Long term (current) use of non-steroidal anti-inflammatories (NSAID); Z79.899 Other long term (current) drug therapy
CPT/HCPCS: 81025; 87635; 93660

== ENCOUNTER → 2021-03-22 | Outpatient (CLI) | payer OTHER ==
--- NOTE | 2021-03-23 18:00 | CT ---
EXAMINATION TYPE: CT abdomen pelvis w con DATE OF EXAM: 03/22/2021 COMPARISON: None INDICATION: hydronephrosis DLP: 683.30 mGycm, Automated exposure control for dose reduction was used. CONTRAST: 100 mL of Isovue 300. Study performed without Oral Contrast TECHNIQUE: Axial images were obtained from above the diaphragm to the pubic rami in the axial plane a t 5 mm thick sections. Reconstructed images are reviewed on the computer in the coronal plane. FINDINGS: Limited CT sections are obtained the lung bases. The lung bases are clear. CT ABDOMEN: Liver: Normal Spleen: Normal Pancreas: Normal Adrenal glands: The adrenal glands are normal. Gallbladder: Surgically absent Kidneys: No masses are evident. Mild right hydronephrosis and moderate right hydroureter is present. This extends into the right hemipelvis. Continued dilatation to the urinary bladder is not identified . No distal obstructing stone is identified. Note is made this appears to be retrovascular, the hydro ureter extends beyond the crossing mesenteric and iliac vessel although the caliber diminishes somewh at. No renal cysts are present. Delayed images were obtained through the kidneys. Aorta: Normal Inferior vena cava: Normal. CT PELVIS: Loops of bowel within the abdomen and pelvis are normal. This study is performed without oral con trast limiting bowel evaluation. Appendix: Normal as visualized. Urinary bladder: Normal. Genitourinary structures: IUD appears to be within the cervical endometrial canal and lower fundus. T here is some prominent endometrial canal in the upper fundus. A right ovarian cyst is present with a transverse dimension of 2.9 cm. This could be followed with ultrasound. Small cyst is likely present on the left ovary measuring 1.4 cm. Osseous structures: No suspicious lytic or sclerotic lesions. IMPRESSIONS: 1. Right hydronephrosis and hydroureter. There appear to be due to crossing vessels, mesenteric and right iliac. However, the prominence of the hydroureter, while diminished beyond the iliac vessel, re luis present. No other stones obstructing etiology is identified. 2. IUD lies low within the endometrial canal.
== END | disposition home or self-care (01) ==
LOC: RADCTMAIN 18:42
PROVIDERS: ATTEND Urology
DX: N13.30 Unspecified hydronephrosis (principal); N13.4 Hydroureter; Z97.5 Presence of (intrauterine) contraceptive device
CPT/HCPCS: 74177; Q9967

== ENCOUNTER → 2021-06-13 | Outpatient (CLI) | payer OTHER ==
--- NOTE | 2021-06-13 19:44 | US ---
EXAMINATION TYPE: US kidneys/renal and bladder DATE OF EXAM: 06/13/2021 COMPARISON: CT March 22, 2021 CLINICAL HISTORY: N13.30 Hydronephrosis. Hx right kidney hydronephrosis with hx of stent EXAM MEASUREMENTS: Right Kidney: 9.0 x 5.4 x 5.1 cm Left Kidney: 9.4 x 4.4 x 5.9 cm Right Kidney: Mild to moderate right-sided hydronephrosis Left Kidney: No significant hydronephrosis prevoid with possible change seen postvoid Bladder: distended, anechoic Bilateral Jets not seen There is persistent mild to moderate right-sided hydronephrosis. No nephrolithiasis is seen. No mas ses are identified on images. The urinary bladder is satisfactorily distended. Bilateral ureteral j ets are not seen. IMPRESSION: [id number] right-sided hydronephrosis remains present without significant change fr om recent CT
== END | disposition home or self-care (01) ==
LOC: RADUSWWP 16:30
PROVIDERS: ATTEND Urology
DX: N13.30 Unspecified hydronephrosis (principal)
CPT/HCPCS: 76770

== ENCOUNTER → 2022-02-18 | Outpatient (CLI) | payer OTHER ==
--- NOTE | 2022-02-18 17:45 | US ---
EXAMINATION TYPE: US kidneys/renal and bladder DATE OF EXAM: 02/18/2022 COMPARISON: NONE CLINICAL HISTORY: N13.30 HYDRONEPHROSIS. HX iof hydro EXAM MEASUREMENTS: Right Kidney: 10.4 x 5.2 x 4.0 cm Left Kidney: 9.5 x 5.4 x 4.4 cm Right Kidney: Mild hydronephrosis Left Kidney: No hydronephrosis or masses seen Bladder: wnl Bilateral Jets seen: Yes IMPRESSION: 1. Mild right hydronephrosis
== END | disposition home or self-care (01) ==
LOC: RADUSWWP 15:27
PROVIDERS: ATTEND Urology
DX: N13.30 Unspecified hydronephrosis (principal)
CPT/HCPCS: 76770

== ENCOUNTER → 2022-08-29 | Outpatient (CLI) | payer OTHER ==
--- NOTE | 2022-08-29 16:21 | US ---
EXAMINATION TYPE: US kidneys/renal and bladder DATE OF EXAM: 08/29/2022 COMPARISON: 02/18/2022, 06/13/2021 CLINICAL HISTORY: Right flank pain. EXAM MEASUREMENTS: Right Kidney: 10.1 x 5.0 x 4.6 cm Left Kidney: 9.8 x 5.6 x 4.8 cm Right Kidney: Minimal Prominence in right lower pole calyx Left Kidney: wnl Bladder: wnl Bilateral Jets seen: yes IMPRESSION: 1. No acute ultrasound abnormality. 2. Some minimal prominence of the inferior pole right renal calyx is not excluded. This could be resi dual hydronephrosis.
== END | disposition home or self-care (01) ==
LOC: RADUSWWP 13:38
PROVIDERS: ATTEND Family Medicine
DX: R10.9 Unspecified abdominal pain (principal)
CPT/HCPCS: 76770

== ENCOUNTER → 2022-09-18 | Outpatient (CLI) | payer OTHER ==
--- NOTE | 2022-09-19 17:58 | MM ---
Reason for Exam: Screening (asymptomatic). Last mammogram was performed 1 year(s) and 8 month(s) ago. Patient History: Menarche at age 15. First Full-Term at age 23. Hormonal Contraceptives for 2 years from age 18 until age 20. Paternal grandmother had breast cancer, age 50. Paternal grandmother had breast cancer, age 74. Paternal cousin had breast cancer, age 38. Paternal aunt had breast cancer under age 50. Sister had breast cancer, age 38. Risk Values: [place] 5 year model risk: 1.0%. NCI Lifetime model risk: 18.4%. Prior Study Comparison: 01/08/2021 Bilateral Screening Mammogram, [facility]. Tissue Density: The breast tissue is extremely dense which could obscure a lesion on mammography. Findings: Analyzed By CAD. Pattern appears symmetrical and stable. No significant interval change is evident. No suspicious groups of microcalcifications, spiculated or lobular masses, architectural distortion or other secondary signs of malignancy are mammographically apparent. Overall Assessment: Benign, BI-RAD 2 Management: Screening Mammogram of both breasts in 1 year. A negative mammogram report should not preclude additional follow up of suspicious palpable abnormalities. Patient should continue monthly self breast exam. A clinical breast exam by your physician is recommended on an annual basis and results should be correlated with mammographic findings. Electronically signed and approved by: Ramesh Muñiz D.O. Radiologis
== END | disposition home or self-care (01) ==
LOC: RADMAMWWP 16:55
PROVIDERS: ATTEND Family Medicine
DX: Z12.31 Encounter for screening mammogram for malignant neoplasm of breast (principal); Z80.3 Family history of malignant neoplasm of breast
CPT/HCPCS: 77063; 77067

== ENCOUNTER → 2023-10-17 | Outpatient (CLI) | payer OTHER ==
--- NOTE | 2023-10-17 15:06 | US ---
EXAMINATION TYPE: US kidneys/renal and bladder DATE OF EXAM: 10/17/2023 COMPARISON: NONE CLINICAL INDICATION: Female, 42 years old with history of N13.30 UNSPECIFIED HYDRONEPHROSIS; hydronep hrosis EXAM MEASUREMENTS: Right Kidney: 9.6 x 5.1 x 4.1 cm Left Kidney: 9.2 x 5.1 x 4.1 cm Right Kidney: No hydronephrosis or masses seen Left Kidney: No hydronephrosis or masses seen Bladder: wnl Bilateral Jets seen: Yes There is no evidence for hydronephrosis at this point in time. No nephrolithiasis is seen. No edson s are identified. The urinary bladder is anechoic. Bilateral ureteral jets are seen. IMPRESSION: No hydronephrosis or shadowing renal stones.
== END | disposition home or self-care (01) ==
LOC: RADUSWWP 14:39
PROVIDERS: ATTEND Urology
DX: N13.30 Unspecified hydronephrosis (principal)
CPT/HCPCS: 76770